=== PATIENT | male | born 1960 | race Caucasian/White ===

== ENCOUNTER 2019-01-16 13:03 | Inpatient (IN) | payer OTHER ==
[~2019-01-16] VITALS: Ht 180.3 cm; Wt 168.0 kg
[2019-01-16] MEDS ORDERED: ONDANSETRON 2MG/ML, 2ML ONE (13:55)
[2019-01-16] MEDS ORDERED: MORPHINE SULFATE 4 MG/ML, 1ML ONE (13:55)
[2019-01-16] MEDS ORDERED: SODIUM CHLORIDE FLUSH 10ML SYR IVF ONE (14:00)
[2019-01-16] MEDS ORDERED: ONDANSETRON 2MG/ML, 2ML IVPush ONE (14:00)
[2019-01-16] MEDS: MORPHINE SULFATE 4 MG/ML, 1ML IVPush PRN ×2 (14:19→18:16)
[2019-01-16 14:21] LABS: BASOPHILS # (AUTO) 0.03 x10^3/uL (0-0.1); BASOPHILS % (AUTO) 0 % (0-1); EOSINOPHILS # (AUTO) 0.41 x10^3/uL (0-0.4); EOSINOPHILS % (AUTO) 4 % (1-7); LYMPHOCYTES % (AUTO) 19 % (22-44); MD NO; MEAN CORPUSCULAR HEMOGLOBIN 30.8 pg (27.5-34.5); MEAN CORPUSCULAR HGB CONC 33.1 g/dL (33.2-36.2); MEAN CORPUSCULAR VOLUME 93.1 fL (81-97); MEAN PLATELET VOLUME 7.5 fL (7.4-10.4); MONOCYTES # (AUTO) 0.84 x10^3/uL (0.2-0.8); MONOCYTES % (AUTO) 8 % (2-9); NEUTROPHILS # (AUTO) 7.13 x10^3/uL (1.8-6.8); NEUTROPHILS % (AUTO) 69 % (42-75); PLATELET COUNT 271 x10^3/uL (130-400); RED BLOOD COUNT 4.68 x10^6/uL (4.38-5.82); RED CELL DISTRIBUTION WIDTH 14.9 % (9.4-14.8)
--- NOTE | 2019-01-16 14:22 | NUR ---
RN NOTIFIED FROM TASK RN THAT PTS SPO2 WAS 74% ON RA, RN PLACED PT ON 4LNC TO BRING SPO2 UP TO 96%
[2019-01-16 14:33] LABS: ALANINE AMINOTRANSFERASE 48 U/L (12-78); ALBUMIN 3.5 g/dL (3.4-5.0); ANION GAP 5 mmol/L (5-15); CALCIUM 8.6 mg/dL (8.5-10.1); CHLORIDE 105 mmol/L (98-107)
[2019-01-16 14:35] LABS: ALKALINE PHOSPHATASE 82 U/L (45-117); BILIRUBIN,TOTAL 0.3 mg/dL (0.2-1.0); CREATININE 1.16 mg/dL (0.7-1.3)
[2019-01-16 14:50] LABS: MICROSCOPIC AUTO
--- NOTE | 2019-01-16 14:51 | NUR ---
BREAK RN NOTE: PT REPORTS ABD/BACK PAIN IMPROVED S/P MORPHINE. PT WEARING OXYGEN AT 4L/MIN, PLACED BY PRIMARY RN LANDA. PT IS A&O, RESPS EVEN AND UNLABORED. BP AND SPO2 MONITORS IN PLACE. CALL LIGHT IN REACH. AWAITING UA RESULTS AND DISPO AT THIS TIME.
[2019-01-16 14:52] LABS: CULTURE INDICATED? NO
--- NOTE | 2019-01-16 15:20 | NUR ---
report back to primary SKYLAR Cho.
[2019-01-16] MEDS ORDERED: OMNIPAQUE 350 MG/ML, 100ML BOTTLE ONE (15:44)
--- NOTE | 2019-01-16 16:22 | NUR ---
PT RETURNED FROM CT, AWAITING RESULTS. PT RESTING IN [facility], CALL LIGHT WITHIN REACH. VSS ON 2L NC
--- NOTE | 2019-01-16 16:37 | NUR ---
PT AMBULATED WITHOUT OXYGEN, SPO2 88-90%, PT STATES HE HAS BEEN CONGESTED AFTER BEING SICK LAST WEEK AND TAKING MUCINEX. NOTIFIED.
[2019-01-16 16:50] LABS: TROPONIN I < 0.015 ng/mL (0.000-0.045)
--- NOTE | 2019-01-16 16:59 | NUR ---
TASK RN NOTIFIED RN PTS SPO2 DROPPED INTO MID 70'S OFF OXYGEN. MD NOTIFIED. PT PLACED ON 4L NC
[2019-01-16] MEDS ORDERED: BENA5TAB3 PO (17:24)
[2019-01-16] MEDS ORDERED: FURO20TA3 PO (17:24)
[2019-01-16] MEDS ORDERED: ASPI-515 PO (17:26)
[2019-01-16] MEDS ORDERED: ALLO300T PO (17:26)
--- NOTE | 2019-01-16 17:29 | NUR ---
PT TO BE ADMITTED, MD AT BEDSIDE TO DISCUSS POC WITH PT
--- NOTE | 2019-01-16 17:57 | NUR ---
REPORT TO TONY CHENG
[2019-01-16] MEDS ORDERED: HYDROcodone/APAP 5/325 TABLET PO PRN (20:30)
[2019-01-16] MEDS ORDERED: TEMAZEPAM 15 MG CAPSULE PO PRN (20:30)
[2019-01-16] MEDS ORDERED: hydrALAzine 20 MG/ML, 1ML IVPush PRN (20:30)
[2019-01-16 21:02] LABS: TROPONIN I < 0.015 ng/mL (0.000-0.045)
[2019-01-16] MEDS ORDERED: GUAI12009 PO (21:16)
[2019-01-16 21:19] VITALS: BP 112/67
[2019-01-16] MEDS: ENOXAPARIN 40 MG/0.4 ML SQ SCH (21:29)
[2019-01-16] MEDS: SODIUM CHLORIDE 0.9% 1,000 ML IV SCH (21:29)
[2019-01-16] MEDS: LIDODERM 5% PATCH TD PRN (21:30)
[2019-01-16] MEDS: morphine SULFATE 10 MG/ML, 1ML IVPush PRN (21:31)
[2019-01-16] MEDS: BENZONATATE 100 MG CAPSULE PO SCH (23:05)
[2019-01-16] MEDS ORDERED: FURO-92 PO (23:10)
[2019-01-16] MEDS ORDERED: ALBUTEROL SULFATE 2.5 MG/3 ML NPPB PRN (23:30)
[2019-01-17 01:15] VITALS: BP 103/48
[2019-01-17] MEDS: morphine SULFATE 10 MG/ML, 1ML IVPush PRN ×2 (01:17→15:11)
[2019-01-17 02:27] LABS: BASOPHILS # (AUTO) 0.07 x10^3/uL (0-0.1); BASOPHILS % (AUTO) 1 % (0-1); EOSINOPHILS # (AUTO) 0.53 x10^3/uL (0-0.4); EOSINOPHILS % (AUTO) 6 % (1-7); LYMPHOCYTES # (AUTO) 2.46 x10^3/uL (1-3.4); LYMPHOCYTES % (AUTO) 25 % (22-44); MD NO; MEAN CORPUSCULAR HEMOGLOBIN 30.9 pg (27.5-34.5); MEAN CORPUSCULAR HGB CONC 32.8 g/dL (33.2-36.2); MEAN CORPUSCULAR VOLUME 94.1 fL (81-97); MEAN PLATELET VOLUME 7.6 fL (7.4-10.4); MONOCYTES % (AUTO) 7 % (2-9); NEUTROPHILS % (AUTO) 61 % (42-75); PLATELET COUNT 239 x10^3/uL (130-400); RED BLOOD COUNT 4.52 x10^6/uL (4.38-5.82); RED CELL DISTRIBUTION WIDTH 15.5 % (9.4-14.8)
[2019-01-17 02:39] LABS: ANION GAP 3 mmol/L (5-15); CALCIUM 8.3 mg/dL (8.5-10.1); CHLORIDE 106 mmol/L (98-107); CREATININE 0.88 mg/dL (0.7-1.3)
[2019-01-17 02:44] LABS: TROPONIN I < 0.015 ng/mL (0.000-0.045)
[2019-01-17] MEDS: ACETAMINOPHEN 325 MG TABLET PO PRN ×2 (05:10→18:34)
[2019-01-17 09:23] VITALS: BP 118/67
[2019-01-17] MEDS: BENZONATATE 100 MG CAPSULE PO SCH ×3 (10:01→21:05)
[2019-01-17] MEDS: ASPIRIN 81 MG TABLET EC PO SCH (10:01)
[2019-01-17] MEDS: SODIUM CHLORIDE 0.9% 1,000 ML IV SCH (10:02)
[2019-01-17] MEDS: FUROSEMIDE 40 MG/4 ML IV SCH ×2 (12:21→18:34)
[2019-01-17] MEDS: POTASSIUM CHLORIDE 20 MEQ TAB.ER.PRT PO SCH (12:21)
[2019-01-17] MEDS ORDERED: OMNIPAQUE 350 MG/ML, 100ML BOTTLE ONE (14:46)
[2019-01-17 14:47] VITALS: BP 137/81
[2019-01-17 18:42] VITALS: BP 104/67
[2019-01-17] MEDS: ENOXAPARIN 40 MG/0.4 ML SQ SCH (21:06)
[2019-01-18] MEDS: LIDODERM 5% PATCH TD PRN ×2 (00:18→22:58)
[2019-01-18] MEDS: morphine SULFATE 10 MG/ML, 1ML IVPush PRN (00:19)
[2019-01-18 01:04] VITALS: BP 128/69
[2019-01-18] MEDS: ACETAMINOPHEN 325 MG TABLET PO PRN ×5 (02:56→22:58)
[2019-01-18] MEDS: DOCUSATE 100 MG CAPSULE PO PRN ×2 (05:31→16:10)
[2019-01-18] MEDS: FUROSEMIDE 40 MG/4 ML IV SCH ×2 (07:50→16:11)
[2019-01-18] MEDS: POTASSIUM CHLORIDE 20 MEQ TAB.ER.PRT PO SCH (08:21)
[2019-01-18] MEDS: ASPIRIN 81 MG TABLET EC PO SCH (08:22)
[2019-01-18] MEDS: BENZONATATE 100 MG CAPSULE PO SCH ×3 (08:22→21:23)
[2019-01-18 08:59] VITALS: BP 115/74
[2019-01-18 11:51] VITALS: BP 115/74
[2019-01-18 14:59] VITALS: BP 128/75
[2019-01-18 20:32] VITALS: BP 110/69
[2019-01-18] MEDS: ENOXAPARIN 40 MG/0.4 ML SQ SCH (21:23)
[2019-01-19 01:37] VITALS: BP 121/73
[2019-01-19] MEDS: FUROSEMIDE 40 MG/4 ML IV SCH (06:35)
[2019-01-19 07:33] VITALS: BP 110/71
[2019-01-19] MEDS: POTASSIUM CHLORIDE 20 MEQ TAB.ER.PRT PO SCH (08:28)
[2019-01-19] MEDS: BENZONATATE 100 MG CAPSULE PO SCH (08:28)
[2019-01-19] MEDS: ASPIRIN 81 MG TABLET EC PO SCH (08:28)
[2019-01-19] MEDS ORDERED: POLYETHYLENE GLYCOL 17 GM PACKET PO SCH (09:00)
[2019-01-19] MEDS ORDERED: POLY17PO5 PO (12:16)
[2019-01-19] MEDS ORDERED: LIDO700A20 TD (12:16)
[2019-01-19] MEDS ORDERED: POTA20TA6 PO (12:16)
[2019-01-19] MEDS ORDERED: BENZ-17 PO (12:31)
== END 2019-01-19 14:30 | disposition home or self-care (01) | DRG 291 ==
LOC: ED 13:49 → EDIP 17:21 → 4EST 18:17 → 4WST 01-17 17:54 → DCLOUNGE 01-19 14:10
PROVIDERS: ADMIT Internal Medicine; ATTEND Internal Medicine
DX: I11.0 Hypertensive heart disease with heart failure (principal); J96.01 Acute respiratory failure with hypoxia; Z68.43 Body mass index [BMI] 50.0-59.9, adult; I50.33 Acute on chronic diastolic (congestive) heart failure; E66.01 Morbid (severe) obesity due to excess calories; G47.33 Obstructive sleep apnea (adult) (pediatric); I08.3 Combined rheumatic disorders of mitral, aortic and tricuspid valves; J45.909 Unspecified asthma, uncomplicated; J84.10 Pulmonary fibrosis, unspecified; M10.9 Gout, unspecified; K59.00 Constipation, unspecified; Z80.1 Family history of malignant neoplasm of trachea, bronchus and lung; Z91.041 Radiographic dye allergy status; Z91.048 Other nonmedicinal substance allergy status
CPT/HCPCS: 36415; 71045; 71275; 74177; 80048; 80053; 81001; 83690; 83735; 83880; 84484; 85025; 93005; 93306; 93970; 99285; G0378; J1650; J1940; J2405; Q9967; J2270; J7030

== ENCOUNTER 2020-12-21 11:48 | Day surgery (SDC) | payer OTHER, MEDICAID ==
[~2020-12-21] VITALS: Ht 177.8 cm; Wt 159.0 kg
[~2020-12-21 11:48] MED LIST: ALLO300T PO; ASPI-963 PO; BENA5TAB3 PO; BENZ-17 PO; DIPHENHYDRAMINE 50 MG/ML, 1ML ONE; FURO-92 PO; FURO20TA3 PO; GUAI12009 PO; LIDO700A20 TD; POLY17PO5 PO; POTA20TA6 PO
[2020-12-21] MEDS ORDERED: DIPHENHYDRAMINE 50 MG/ML, 1ML IVPush ONE (12:30)
[2020-12-21] MEDS ORDERED: NITROGLYCERIN 5 MG/ML, 10ML ONE (12:32)
[2020-12-21] MEDS ORDERED: VERAPAMIL 2.5 MG/ML, 2ML ONE (12:33)
[2020-12-21] MEDS ORDERED: HEPARIN 1,000 UNITS/ML, 10ML ONE (12:33)
[2020-12-21] MEDS ORDERED: FENTANYL PF 100 MCG/2ML ONE (12:33)
[2020-12-21] MEDS ORDERED: LIDOCAINE-MPF 1%, 5ML ONE (12:33)
[2020-12-21] MEDS ORDERED: MIDAZOLAM 1 MG/ML, 5ML ONE (12:33)
[2020-12-21] MEDS ORDERED: INDO50CA15 PO (12:36)
[2020-12-21] MEDS ORDERED: ALLO300T PO (12:36)
[2020-12-21] MEDS ORDERED: CHOL10003 PO (12:36)
[2020-12-21] MEDS ORDERED: ZINC50CA PO (12:36)
[2020-12-21] MEDS ORDERED: FLUT1DIS3 INH (12:36)
[2020-12-21] MEDS ORDERED: CETI5TAB3 PO (12:36)
[2020-12-21] MEDS ORDERED: POTA10TA PO (12:36)
[2020-12-21 12:41] LABS: BASOPHILS % (AUTO) 1 % (0-1); EOSINOPHILS % (AUTO) 5 % (1-7); LYMPHOCYTES % (AUTO) 22 % (22-44); MEAN CORPUSCULAR HEMOGLOBIN 30.2 pg (27.5-34.5); MEAN PLATELET VOLUME 7.2 fL (7.4-10.4); MONOCYTES % (AUTO) 10 % (2-9); NEUTROPHILS % (AUTO) 63 % (42-75); PLATELET COUNT 256 x10^3/uL (130-400); RED BLOOD COUNT 4.83 x10^6/uL (4.38-5.82); RED CELL DISTRIBUTION WIDTH 17.7 % (9.4-14.8)
[2020-12-21 12:53] LABS: ANION GAP 6 mmol/L (5-15); CALCIUM 8.9 mg/dL (8.5-10.1); CHLORIDE 102 mmol/L (98-107); CREATININE 0.68 mg/dL (0.7-1.3)
== END 2020-12-21 15:35 | disposition home or self-care (01) ==
LOC: CACL 11:48
PROVIDERS: ATTEND Internal Medicine Cardiovascular Disease
DX: R06.02 Shortness of breath (principal); I11.0 Hypertensive heart disease with heart failure; I50.32 Chronic diastolic (congestive) heart failure; J44.9 Chronic obstructive pulmonary disease, unspecified; G47.30 Sleep apnea, unspecified; E66.01 Morbid (severe) obesity due to excess calories; Z68.42 Body mass index [BMI] 45.0-49.9, adult; Z79.82 Long term (current) use of aspirin; Z79.899 Other long term (current) drug therapy; Z87.891 Personal history of nicotine dependence; Z91.018 Allergy to other foods; Z91.048 Other nonmedicinal substance allergy status; Z99.81 Dependence on supplemental oxygen
CPT/HCPCS: 36415; 80048; 82803; 83880; 85025; 93456; 99156; 99157; C1769; C1894; J1200; J1644; J2250; J3010; Q9967